=== PATIENT | female | born 1995 ===

== ENCOUNTER 2018-03-12 17:39 | Emergency (ER) | payer SELFPAY | END 2018-03-12 21:58 | disposition home or self-care (01) | LOC: C.ER 17:39 ==

== ENCOUNTER 2018-04-30 19:35 | Emergency (ER) | payer SELFPAY ==
[2018-04-30 20:02] VITALS: BMI 19.9
[2018-04-30 20:59] LABS: SQUAMOUS EPITHIAL 8 /hpf (0-5); URINE AMORPHOUS SEDIMENT RARE /ul (<OCC); URINE BILIRUBIN NEGATIVE (NEGATIVE); URINE BLOOD NEGATIVE (NEGATIVE); URINE CLARITY Hazy (Clear); URINE COLOR Yellow (YELLOW); URINE GLUCOSE (UA) NORMAL (Normal); URINE LEUKOCYTE ESTERASE 2+ Leu/uL (Negative); URINE PROTEIN NEGATIVE (NEGATIVE); URINE UROBILINOGEN NORMAL mg/dL (0.2-1.0)
--- NOTE | 2018-04-30 22:22 | OBDCSUM ---
Datetime: 04/30/2018 21:10 Discharged to, Provider: Home Follow up at, Provider: clinic Disch Instr Activity: Normal activity Disch Instr Diet: Regular Discharge Instructions, Provider: Routine instructions given Discharge Time: 04/30/2018 21:11 Follow up in weeks, Provider: 05/04 appointment Disch Referrals: None Disch Activity Restrictions: No sexual activity; Nothing in vagina - [place], tampons, douche Discharge Comment, Provider: Patient is 23 year old at 21w1d by LMP 12/03/17 who presents to the unit for back pain and suprapubic pressure x 8 days. Patient also reports having increased urina ry frequency and dysuria. Patient states that she took Tylenol on Tuesday with some relief. At this ti me she rates the pain a 4/10 on pain scale. She endorses +FM, denies CTX, VB, or LOF. Denies fevers, chills, headaches, dizziness, cp, palpitations, sob, changes in bowel habits. She goes to [facility] for care. issues: denies OB Hx: 1. 2013 at 41 weeks, 7lbs, male , no complications 2. 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 Hx: LMP 12/03/17 [facility] 13 x regular x 5 days Denies history of fibroids, ovarian cysts, STIs Denies history of abnormal pap smears Allergies: NKDA Medications: PNV Medical History: Denies Surgical History: Craniotomy for evacuation of hematoma at age 9 Social History: Denies alcohol, tobacco, drug use Family History: Mother - healthy, Father - healthy PE: see above A/P: 22 year old at 21w1d who presents with back pain, urinary symptoms and suprapubic/abd ominal pressure -Category I tracing - Urinalysis reviewed and possible UTI/symptomatic -Will treat with Macrobid 100mg PO BID x 7 days and Rx given. Patient instructed to increase PO hydration and to drink cranberry juice. labo r precautions given. Patient to follow up with clinic as regularly scheduled on 05/04/18. All question s and concerns were addressed. D/C home in Stable and Satisfactory condition. Plan discussed with Dr Michele Bililngsley DO PGY-2 Pt seen and examined with Dr. Billingsley and all of her findings and POC were discussed and agreed upon Discharge Diagnosis Prov Other: Symptomatic UTI Mild Dehydration Datetime: 04/30/2018 21:07 Discharged to, Provider: Home Follow up at, Provider: [facility] Disch Instr Activity: Normal activity; May be up to bathroom; May be up for meals; May Shower Disch Instr Diet: Regular Discharge Instructions, Provider: Routine instructions given Discharge Time: 04/30/2018 21:07 Follow up in weeks, Provider: May 04 2018 Contraception discussed, Prov: No Discharge Comment, Provider: Patient is a 22 year old at 21w1d who presented with back pain/ suprapubic pressure and urinary symptoms. Patient found to have a UTI. Prescription for Macrobid 100m g PO BID x 7 days given to the patient. Patient has an appointment with [facility] on May 04 2018. labor precautions given. Patient advised to increase PO hydration and to drink cranberr y juice. Plan discussed with Dr Michele Billingsley DO PGY-2 Discharge Diagnosis Prov Other: UTI in
--- NOTE | 2018-04-30 22:40 | OBHP ---
Datetime: 04/30/2018 20:09 IP Adm Impression: , intrauterine IP Chief Complaint Other: Back pain, Abdominal/suprapubic pressure IP Adm Impression Other: UTI in IP Admit Plan: Discharge home Admit Comment, IP Provider: Patient is 23 year old at 21w1d by LMP 12/03/17 who presents to the unit for back pain and suprapubic pressure x 8 days. Patient also reports having increased urinar y frequency and dysuria. Patient states that she took Tylenol on Tuesday with some relief. At this kristin e she rates the pain a 4/10 on pain scale. She endorses +FM, denies CTX, VB, or LOF. Denies fevers, c hills, headaches, dizziness, cp, palpitations, sob, changes in bowel habits. She goes to [facility] for care. issues: denies OB Hx: 1. 2013 at 41 weeks, 7lbs, male , no complications 2. 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 Hx: LMP 12/03/17 [facility] 13 x regular x 5 days Denies history of fibroids, ovarian cysts, STIs Denies history of abnormal pap smears Allergies: NKDA Medications: PNV Medical History: Denies Surgical History: Craniotomy for evacuation of hematoma at age 9 Social History: Denies alcohol, tobacco, drug use Family History: Mother - healthy, Father - healthy PE: see above A/P: 22 year old at 21w1d who presents with back pain, urinary symptoms and suprapubic/abd ominal pressure -Category I tracing -We will send urinalysis and urine culture Plan discussed with Dr Michele Billingsley DO PGY-2 Pt seen and examined with Dr. Billingsley and agree with her findings and POC. FHR - Baseline A Provider: 140 Contraction Comments Provider: none Comments, ACOG Physical Exam: VSS Abd: soft, gravid, mild suprapubic tenderness Ext: No clubbing, cyanosis, edema IP Hx Assessment: No records available at this time EGA AdmitDate IP: 20.0 Vital Signs Provider: Reviewed; Within Normal Limits IP Chief Complaint: Signs/symptoms UTI; Other NICHD Variability Prov Fetus A: Moderate 6-25bpm FHR Category Provider Fetus A: Category I NICHD Decel Fetus A IP Provider: None (Annotations: Data stored by CPN on behalf of user)
[2018-05-01 04:19] VITALS: BP 109/57; PULSE 81; TEMP 98.2
== END 2018-04-30 21:15 | disposition home or self-care (01) ==
LOC: C.EROB 19:35
DX: O23.42 Unspecified infection of urinary tract in pregnancy, second trimester (principal); O26.892 Other specified pregnancy related conditions, second trimester; E86.0 Dehydration; Z3A.21 21 weeks gestation of pregnancy